=== PATIENT | male | born 2000 | race Two or more races ===

== ENCOUNTER 2019-01-22 14:38 | Emergency (ER) | payer BC ==
--- NOTE | 2019-01-22 15:05 | ED Physician Documentation ---
PD HPI ABD PAIN - Stated complaint Stated Complaint: LT SIDE ABD PAIN, THROAT PAIN - Chief complaint Chief Complaint: Abd Pain - History obtained from History obtained from: Patient - History of Present Illness Timing - onset: How many weeks ago (several weeks left sided abd pain, worse with movement and bending. Not associated with eating, BMs nor urination, though has had some recurrent dysuria that was previously Dx as chlamydia at [facility] month ago (was given the IM rocephin and several pills, presume Zithromax). Has had some soft stool/mild diarrhea the past few weeks and also noted some mucous in the stool.) Timing - duration: Weeks (few) Timing - details: Gradual onset, Still present, Waxing and waning Quality: Cramping, Aching, Pain. No: Sharp, Stabbing Location: LUQ Radiation: Left flank Improved by: Position (lying on stomach or right side.). No: Eating, BM Worsened by: Position (movement of getting up and with twisting torso, with lying left side, and with bending over/picking up objects.). No: Eating Associated symptoms: Diarrhea (mild with mucous of it as well), Dysuria. No: Fever, Nausea, Vomiting, Constipation, Hematuria, Chest pain Similar symptoms before: Has not had sx before Recently seen: Clinic ([facility] ? clinic month ago with dysuria and Dx with chlamydia. Given meds. [place] improved mostly with still some dysuria at times.) Review of Systems Constitutional: denies: Fever, Chills, Myalgias Nose: denies: Rhinorrhea / runny nose, Congestion Throat: reports: Sore throat (feels sore with swallowing, and more after smoking cigarettes.) Cardiac: denies: Chest pain / pressure Respiratory: denies: Dyspnea, Cough GI: reports: Abdominal Pain. denies: Nausea, Vomiting, Constipation : reports: Dysuria. denies: Frequency, Discharge, Testicular pain Skin: denies: Rash, Lesions Musculoskeletal: reports: Back pain. denies: Neck pain PD PAST MEDICAL HISTORY - Past Medical History Cardiovascular: None Respiratory: None Neuro: None Endocrine/Autoimmune: None - Present Medications Home Medications: Ambulatory Orders Medication Instructions Recorded Confirmed Hydrocodone/Acetaminophen 1 each PO Q6H PRN #20 tablet 01/22/19 [Hydrocodon-Acetaminophen 5-325] Naproxen 500 mg PO BID #20 tablet 01/22/19 Saccharomyces Boulardii [Florastor] 250 mg PO BID #20 capsule 01/22/19 dexAMETHasone [Decadron] 4 mg PO DAILY #5 tablet 01/22/19 - Allergies Allergies/Adverse Reactions: Allergies Allergy/AdvReac Type Severity Reaction Status Date / Time No Known Drug Allergies Allergy Verified 01/22/19 14:47 PD ED PE NORMAL - Vitals Vital signs reviewed: Yes - General General: Alert and oriented X 3, No acute distress, Well developed/nourished - HEENT HEENT: Moist mucous membranes, Pharynx benign - Neck Neck: Supple, no meningeal sign, No adenopathy - Cardiac Cardiac: RRR, No murmur - Respiratory Respiratory: Clear bilaterally - Abdomen Abdomen: Normal bowel sounds, Soft, Non distended, No organomegaly, Other (tender left upper abd. Spleen seems enlarged to percussion and palpation with some tenderness in the area. Tender at oblique abd muscles as well. ) - Male Male : Deferred - Rectal Rectal: Deferred - Back Back: No spinal TTP - Derm Derm: Normal color, Warm and dry, No rash - Neuro Neuro: Alert and oriented X 3, No motor deficit, Normal speech Results - Vitals Vitals: Vital Signs - 24 hr 01/22/19 01/22/19 14:40 17:56 Temperature 36.8 C Heart Rate 98 70 Respiratory 16 16 Rate Blood Pressure 116/63 116/51 L O2 Saturation 99 Oxygen O2 Source Room air - Labs Labs: Laboratory Tests 01/22/19 01/22/19 01/22/19 15:07 16:15 16:15 WBC 4.7 L RBC 4.61 L Hgb 13.9 L Hct 42.0 MCV 91.1 MCH 30.2 MCHC 33.1 RDW 12.3 Plt Count 265 MPV 9.0 Neut # (Auto) 2.8 Lymph # (Auto) 1.2 L [place] # (Auto) 0.5 Eos # (Auto) 0.2 Baso # (Auto) 0.0 Absolute Nucleated RBC 0.00 Nucleated RBC % 0.0 ESR Sodium 140 Potassium 3.7 Chloride 106 Carbon Dioxide 29 Anion Gap 5.0 L BUN 18 Creatinine 0.9 Estimated GFR (MDRD) 108 Glucose 85 Calcium 8.9 Total Bilirubin 0.3 AST 19 ALT 14 Alkaline Phosphatase 65 C-Reactive Protein 1.0 Total Protein 6.6 L Albumin 3.9 Globulin 2.7 Albumin/Globulin Ratio 1.4 Lipase 36 Urine Color YELLOW Urine Clarity CLEAR Urine pH 6.5 Ur Specific [place] 1.020 Urine Protein NEGATIVE Urine Glucose (UA) NEGATIVE Urine Ketones NEGATIVE Urine Occult Blood NEGATIVE Urine Nitrite NEGATIVE Urine Bilirubin NEGATIVE Urine Urobilinogen 0.2 (NORMAL) Ur Leukocyte Esterase NEGATIVE Ur Microscopic Review NOT INDICATED Urine Culture Comments NOT INDICATED 01/22/19 16:15 WBC RBC Hgb Hct MCV MCH MCHC RDW Plt Count MPV Neut # (Auto) Lymph # (Auto) Jew[place] # (Auto) Eos # (Auto) Baso # (Auto) Absolute Nucleated RBC Nucleated RBC % ESR 1 Sodium Potassium Chloride Carbon Dioxide Anion Gap BUN Creatinine Estimated GFR (MDRD) Glucose Calcium Total Bilirubin AST ALT Alkaline Phosphatase C-Reactive Protein Total Protein Albumin Globulin Albumin/Globulin Ratio Lipase Urine Color Urine Clarity Urine pH Ur Specific [place] Urine Protein Urine Glucose (UA) Urine Ketones Urine Occult Blood Urine Nitrite Urine Bilirubin Urine Urobilinogen Ur Leukocyte Esterase Ur Microscopic Review Urine Culture Comments - Rads (name of study) abd CT Radiology: Prelim report reviewed (read as normal by Radiology), See rad report PD MEDICAL DECISION MAKING - ED course Complexity details: reviewed results (normal CT and labs. ), re-evaluated patient, considered differential (could be muscular as increases with movement and torso movement. But spleen seems enlarged on exam, and he has sore throat and some mucous in stool (after abx a month ago). Will get CT to eval for colitis, diverticulitis, renal stone, splenic mass/lymphoma, etc. ), d/w patient Departure - Departure Disposition: Home, Self Care Clinical Impression: Left sided abdominal pain, Abdominal muscle pain Condition: Stable Record reviewed to determine appropriate education?: Yes Instructions: ED Abdominal Pain Unkn Cause, ED Strain Abdominal Muscle Follow-Up: [facility] [Provider Group] [facility] [Provider Group] Prescriptions: dexAMETHasone [Decadron] 4 mg PO DAILY #5 tablet Hydrocodone/Acetaminophen [Hydrocodon-Acetaminophen 5-325] 1 each PO Q6H PRN #20 tablet PRN Reason: pain Naproxen 500 mg PO BID #20 tablet Saccharomyces Boulardii [Florastor] 250 mg PO BID #20 capsule Comments: Your CT scan and blood test did not show any obvious acute abnormality. This would not show muscular type pain or perhaps some inflammation or irritation of the intestine. The character of your abdominal pain does sound likely muscular then. The mild diarrhea you have can still likely be a residual of the antibiotics you had a month ago. At this point I would try some anti-inflammatory such as naproxen 2-3 times a day with food. Add to that Tylenol or hydrocodone if needed for pain. Stay well-hydrated and also use a probiotic and see if that helps your stool movements. Recheck if not improved well over the next several days to a week. Avoid heavy lifting and repetitive bending for several days to week until you are feeling better as well. Forms: Activity restrictions Discharge Date/Time: 01/22/19 18:32
[2019-01-22] MEDS ORDERED: KETOROLAC 15 MG/ML VIAL IVP STA (15:55)
[2019-01-22] MEDS ORDERED: SODIUM CHLORIDE 0.9% 1,000 ML IV ONE (15:56)
[2019-01-22] MEDS ORDERED: IOVERSOL 320 100 ML VIAL IVP ONE (16:03)
[2019-01-22 16:23] LABS: BILIRUBIN,URINE NEGATIVE (NEGATIVE); GLUCOSE, URINE (UA) NEGATIVE (NEGATIVE); KETONES,URINE (UA) NEGATIVE (NEGATIVE); LEUKOCYTE ESTERASE, URINE NEGATIVE (NEGATIVE); NITRITE,URINE NEGATIVE (NEGATIVE); OCCULT BLOOD,URINE NEGATIVE (NEGATIVE); PH,URINE 6.5 PH (5.0-7.5); PROTEIN,URINE NEGATIVE (NEGATIVE); UROBILINOGEN,URINE 0.2 (NORMAL) E.U./dL (NORMAL)
[2019-01-22 16:24] LABS: CLARITY,URINE CLEAR (CLEAR)
[2019-01-22 16:24] LABS: BASOPHILS % (AUTO) 0.6 %; EOSINOPHILS # (AUTO) 0.2 10^3/uL (0.0-0.7); EOSINOPHILS % (AUTO) 4.1 %; HGB - HEMOGLOBIN 13.9 g/dL (14.0-18.0); LYMPHOCYTES # (AUTO) 1.2 10^3/uL (1.5-3.5); LYMPHOCYTES % (AUTO) 24.9 %; MEAN CORPUSCULAR HEMOGLOBIN 30.2 pg (27.0-31.0); MEAN CORPUSCULAR HGB CONC 33.1 g/dL (32.0-36.0); MEAN CORPUSCULAR VOLUME 91.1 fL (80.0-94.0); MONOCYTES # (AUTO) 0.5 10^3/uL (0.0-1.0); MONOCYTES % (AUTO) 9.9 %; NEUTROPHILS # (AUTO) 2.8 10^3/uL (1.5-6.6); NEUTROPHILS % (AUTO) 60.3 %; PLT - PLATELET COUNT 265 10^3/uL (130-450); RED BLOOD COUNT 4.61 10^6/uL (4.70-6.10); RED CELL DISTRIBUTION WIDTH 12.3 % (12.0-15.0); WHITE BLOOD COUNT 4.7 x10^3/uL (4.8-10.8)
[2019-01-22 16:41] LABS: ALBUMIN 3.9 g/dL (3.2-5.5); ALBUMIN/GLOBULIN RATIO 1.4 (1.0-2.2); BILIRUBIN,TOTAL 0.3 mg/dL (0.2-1.0); CALCIUM 8.9 mg/dL (8.5-10.3); CREATININE 0.9 mg/dL (0.6-1.2); TOTAL PROTEIN 6.6 g/dL (6.7-8.2)
[2019-01-22] MEDS ORDERED: IOVERSOL 320 100 ML VIAL IVP STA (16:57)
--- NOTE | 2019-01-22 17:38 | CT Report ---
Reason: left abd pain for 2 weeks; ? spleen feels enlarged Procedure Date: 01/22/2019 Accession Number: [id number] / [id number] Procedure: CT - Abdomen/Pelvis W CPT Code: Final Report FULL RESULT: EXAM: CT ABDOMEN AND PELVIS EXAM DATE: 01/22/2019 04:56 PM. CLINICAL HISTORY: Left abd pain for 2 weeks; ? spleen feels enlarged. COMPARISONS: None. TECHNIQUE: Routine helical CT imaging was performed through the abdomen and pelvis. IV contrast: OPTI 320 80ML. Enteric contrast: No. Reconstructions: Coronal and sagittal. In accordance with CT protocol optimization, one or more of the following dose reduction techniques were utilized for this exam: automated exposure control, adjustment of mA and/or KV based on patient size, or use of iterative reconstructive technique. FINDINGS: Lung Bases: Unremarkable. Liver: Normal. No masses. Gallbladder/Bile Ducts: Contracted gallbladder. Spleen: Normal. Pancreas: Normal. Adrenal Glands: Normal. Kidneys: Normal. No masses or hydronephrosis. Peritoneal Cavity/Bowel: Normal. No free fluid, free air or adenopathy. No masses or acute inflammatory process. Appendix not seen however there are no inflammatory changes in right lower quadrant Pelvic Organs: Normal. The bladder and visualized pelvic organs are within normal limits. Vasculature: No aneurysms or other significant abnormality. Bones: Bilateral spondylolysis at L5 with grade 1 anterolisthesis of L5 over S1. Other: None. IMPRESSION: No acute abdominal pathology. [facility]
[2019-01-22 17:56] VITALS: BP 116/51
[2019-01-22 21:57] LABS: TRICHOMONAS VAGINALIS DNA NEGATIVE (NEGATIVE)
== END 2019-01-22 18:32 | disposition home or self-care (01) ==
LOC: ED 14:38
DX: R10.12 Left upper quadrant pain (principal); M79.18 Myalgia, other site; F17.200 Nicotine dependence, unspecified, uncomplicated
CPT/HCPCS: 36415; 74177; 80053; 81003; 83690; 85025; 85651; 86140; 87491; 87591; 87661; 96361; 96374; 99284; Q9967; 81001; 87086